=== PATIENT | female | born 1960 | race Caucasian/White ===

== ENCOUNTER 2019-07-23 07:03 | Day surgery (SDC) | payer OTHER ==
[~2019-07-23 07:03] MED LIST: CRESTOR20 MG PO; HYZAAR 100-12.1 EACH PO; TOPROL XL100 M1 PO; ZEGERID 20 MG1 EACH PO
[2019-07-23] MEDS ORDERED: PERCOCET 5-3251 EACH PO (13:04)
[2019-07-23] MEDS ORDERED: LEVAQUIN500 MG PO (13:05)
== END 2019-07-23 17:45 | disposition home or self-care (01) ==
LOC: CIR.AMB 07:03
PROVIDERS: ATTEND Obstetrics & Gynecology Gynecology
DX: N81.11 Cystocele, midline (principal)